=== PATIENT | female | born 1940 | race Caucasian/White ===

== ENCOUNTER → 2017-08-04 15:47 | Outpatient (REF) | payer MEDICARE, OTHER, SELFPAY ==
[2017-08-04 16:50] LABS: Basophils # 0.1 K/mm3 (0-0.2); Basophils % 0.7 % (0.1-2.0); Eosinophils # 0.1 K/mm3 (0.0-0.4); Eosinophils % 1.7 % (0.1-12.0); Hematocrit 28.4 % (37.0-47.0); Hemoglobin 9.2 g/dL (12.2-16.2); Lymphocytes # 1.1 K/mm3 (0.7-4.5); Lymphocytes % 13.6 K/mm3 (10-50); Mean Corpuscular HGB Conc 32.3 g/dL (31.8-35.4); Mean Corpuscular Hemoglobin 28.7 pg (27.0-31.2); Mean Corpuscular Volume 88.7 fl (81-99); Mean Platelet Volume 8.5 fl (7.4-10.4); Monocytes # 0.4 K/mm3 (0.1-1.0); Monocytes % 5.1 % (1.7-9.3); Neutrophils # 6.4 K/mm3 (1.8-7.8); Platelet Count 373 K/mm3 (142-424); Red Cell Distribution Width 15.1 % (11.5-17.5); White Blood Count 8.1 K/mm3 (4.8-10.8)
[2017-08-04 17:49] LABS: Anion Gap 14.1 mEq/L (5-15); Blood Urea Nitrogen 51 mg/dL (7-18); Carbon Dioxide 30 mmol/L (21.0-32.0); Chloride 87 mmol/L (98-107); Creatinine,Serum 1.91 mg/dL (0.55-1.02); Estimated Glomerular Filt Rate 25 ml/min (>60); GFR (African American) 31 ML/MIN (>60); Glucose 126 mg/dL (74-106); Potassium 4.1 mmoL/L (3.5-5.1); Sodium 127 mmol/L (136-145)
== END ==
LOC: LAB 15:47
PROVIDERS: Visit Provider Family Medicine
DX: R09.02 Hypoxemia (principal)
CPT/HCPCS: 80048; 83735; 84100; 85025

== ENCOUNTER 2017-08-05 12:06 | Observation (INO) | payer MEDICARE, OTHER, SELFPAY ==
--- NOTE | 2017-08-05 | CA_ITS ---
PROCEDURE: 2-D M-mode and color Doppler study INDICATIONS FOR THE TEST: Chest pain+ COPD Heart Murmur Tobacco Smoking Palpitations Fatigue+ Syncope Edema+ Hypertension+Diabetes Mellitus+ Rheumatic Fever SOB+ORTIZ Obesity Hyperlipidemia+ Family History HD Additional History hx of CT, CABG, Afib, weakness, CHF, elevated troponins PATIENT INFORMATION HEIGHT:57 WEIGHT: 136 GENDER: Female B/P: 131/60 2-D/M-MODE INTERPRETATION: 2-D MEASUREMENTS OBSERVED VALUES IN CMS Right Ventricular Dimension (RVDd) 1.8 Interventricular Septum (Thickness)(IVsd) 0.9 Left Ventricular Internal Dimensions(LVIDd) 5.8 Left Ventricular Posterior Wall (Thickness)(LVPWd) 0.9 Aortic Root 2.5 Aortic Cusp Separation 1.7 Left Atrial Dimensions (LAD) 4.6 2D 1. Technically difficult study because of the patient's factor and poor acoustic windows 2. The left atrium is moderately enlarged, left ventricle is moderately dilated, there is severely reduced left ventricular systolic function, visually estimated ejection fraction approximately 20-25%, there is marked hypo to akinesis involving mid to distal septum, anterior anteroapical, apical and anterolateral wall. 3. The right atrium and right ventricle are mildly enlarged, contractility of the right ventricle is normal. 4. The aortic valve is thickened and calcified with restriction the leaflet mobility. 5. The mitral valve has mitral annular calcification which extends and both anterior and posterior mitral leaflet. 6. The tricuspid valve leaflets are minimally thickened. 7. The pulmonic valve is poorly visualized. 8. There is trivial pericardial and large left-sided pleural effusion seen. DOPPLER INTERROGATION: 1. The aortic out flow velocity is reduced, suggestive of low cardiac output state, degree of aortic stenosis cannot be ascertain from this study, there is mild aortic insufficiency present. 2. The mitral inflow velocity is suggestive of mitral stenosis, there is mild mitral regurgitation. 3. There is mild tricuspid regurgitation seen, tricuspid and jet velocity insufficient for calculation of the right ventricular systolic pressure, tissue Doppler is suggestive of raised left atrial pressure. CONCLUSION: 1. Moderately enlarged left atrium, moderately dilated left ventricle, severely reduced left ventricular systolic function, visually estimated ejection fraction of 20-25%, with segmental wall motion abnormality described above, Doppler evidence of low cardiac output state. 2. Thickened and calcified aortic valve, the degree of aortic stenosis cannot be
--- NOTE | 2017-08-05 12:14 | XR_ITS ---
XR chest 2V COMPARISON: PA and lateral chest 03/21/2017 HISTORY: Hypoxia TECHNIQUE: PA and lateral chest FINDINGS: There is moderate generalized cardio megaly with sternal wire sutures and surgical clips from previous bypass procedure. There are small to moderate sized bilateral pleural effusions. There is a small amount of fluid in the major fissure. There is no significant pulmonary congestion noted. IMPRESSION: Cardio megaly and bilateral pleural effusions likely due to chronic somewhat compensated congestive heart failure
[2017-08-05 12:29] VITALS: BP 131/60; PULSE 72; RESP 18; TEMP 36.6; O2SAT 95; BMI 29.5
[2017-08-05 13:06] LABS: Basophils # 0.1 K/mm3 (0-0.2); Basophils % 0.8 % (0.1-2.0); Eosinophils # 0.1 K/mm3 (0.0-0.4); Hematocrit 28.3 % (37.0-47.0); Lymphocytes # 0.9 K/mm3 (0.7-4.5); Lymphocytes % 10.3 K/mm3 (10-50); Mean Corpuscular HGB Conc 31.9 g/dL (31.8-35.4); Mean Corpuscular Hemoglobin 28.2 pg (27.0-31.2); Mean Corpuscular Volume 88.6 fl (81-99); Mean Platelet Volume 8.2 fl (7.4-10.4); Monocytes # 0.5 K/mm3 (0.1-1.0); Monocytes % 5.8 % (1.7-9.3); Neutrophils # 7.5 K/mm3 (1.8-7.8); Neutrophils % 82.2 % (37.0-80.0); Platelet Count 446 K/mm3 (142-424); Red Blood Count 3.19 M/mm3 (4.20-5.40); Red Cell Distribution Width 15.2 % (11.5-17.5); White Blood Count 9.1 K/mm3 (4.8-10.8)
[2017-08-05 13:37] LABS: ABG Base Excess 1.1 mmol/L (-2.4-2.3); ABG HCO3 24.5 mmhg (22.0-26.0); ABG Oxygen Saturation 97 % (90-100); ABG PCO2 33.1 mmhg (35.0-45.0); ABG PH 7.49 mmol/L (7.35-7.45); ABG TCO2 25.5 mmhg (23-27)
[2017-08-05 13:38] LABS: Allen's Test ACCEPTABLE; Oxygen 3LPM %; Source R RADIAL
--- NOTE | 2017-08-05 13:39 | HMH.HP ---
*Admission Date: 08/05/17 <Korina Zamorano 08/05/17 13:57> *Chief complaint: Weakness, SOA <Korina Zamorano 08/05/17 13:57> *History of present illness: Ms Ba is a 77 female with a hx of heart disease, [place] s/p CABG, afib, HLP, and DM who presented to the office of A today with the complaint of weakness and SOA for 1 week. She had also been having nose bleeds. She is usually on oxygen at 3L/min and her sats are normally in the 90's. Today in the office, her oxygen was 85% on 3L. Rales were heard in her lung bases and it was felt she may have a pneumonia. Of note, she was admitted at [place] in May d/t pneumonia. She was directly admitted from the office for further evaluation and treatment. <Korina Zamorano 08/05/17 13:57> [facility] History Medical History: Reports:: Anxiety, Atrial Fibrillation, Congestive Heart Failure, Coronary Artery Disease, Diabetes Mellitus Type 2, Home Oxygen, Hyperlipidemia, Hypertension, Myocardial Infarction, Renal Insufficiency Denies:: Cancer, Diabetes Mellitus Type 1, MRSA <Korina Zamorano 08/05/17 13:57> Other Medical History: Reports: Anemia <Korina Zamorano 08/05/17 13:57> Laterality Cases: Bilateral: Tonsillectomy <Korina Zamorano 08/05/17 13:57> Other Surgeries: Yes: Appendectomy, Cardiac Catheterization, Cardiac Surgery, Coronary Stent, Hernia Repair, Hysterectomy-Total, Open Heart Surgery <Korina Zamorano 08/05/17 13:57> Amputation: No <Korina Zamorano 08/05/17 13:57> Fractures: No <Korina Zamorano 08/05/17 13:57> Comment: Back surgery <Korina Zamorano 08/05/17 13:57> - *Social History Educational Level: Completed High School <Korina Zamorano 08/05/17 13:57> Smoking Status: Never smoker <Korina Zamoraon 08/05/17 13:57> Alcohol Intake: never <Korina Zamorano 08/05/17 13:57> Occupational Status: retired <Korina Zamorano - 08/05/17 13:57> Housing: house <Korina Zamorano 08/05/17 13:57> Household Members: spouse <Korina Zamorano 08/05/17 13:57> - Psychiatric History Expresses thoughts of harming self/others: None <Korina Zamorano 08/05/17 13:57> Suicide Plan Description: No Plan <Korina Zamorano 08/05/17 13:57> *Family Hx:: Diabetes, Heart Attack, Hyperlipidemia, Hypertension <UbaldodevonteKorina 08/05/17 13:57> Review of Systems - Constitutional Reports fatigue, Reports malaise, Reports weakness, Denies body ache(s) <UbaldodevonteKorina 08/05/17 13:57> - Eyes Denies blurry vision, Denies double vision <bUaldodevonteKorina 08/05/17 13:57> - ENT Reports nasal congestion, Denies sore throat <UbaldodevonteKorina 08/05/17 13:57> - *Cardiovascular Reports chest pain (a few days ago but none today) <UbaldodevonteKorina 08/05/17 13:57> - *Respiratory Reports shortness of breath, Denies cough <UbaldodevonteKorina - 08/05/17 13:57> - *Gastrointestinal Reports nausea, Denies abdominal pain, Denies vomiting <UbaldodevonteKorina 08/05/17 13:57> - *Genitourinary Denies difficulty urinating, Denies painful urination <UbaldodevonteKorina 08/05/17 13:57> - *Musculoskeletal Denies joint pain, Denies body aches <UbaldodevonteKorina - 08/05/17 13:57> - *Neurologic Reports weakness, Denies headache(s) <UbaldodevonteKorina - 08/05/17 13:57> Meds Home Medications Medication Instructions Recorded Confirmed Type Apixaban [Eliquis] 2.5 mg PO BID 08/05/17 08/05/17 History Clopidogrel Bisulfate [Plavix 75mg 75 mg PO DAILY 08/05/17 08/05/17 History Tab] Colesevelam HCl [Welchol] 625 mg PO DAILY 08/05/17 08/05/17 History Cranberry Fruit Extract [Cranberry] 250 mg PO DAILY 08/05/17 08/05/17 History LORazepam [Ativan] 1 mg PO TIDP PRN 08/05/17 08/05/17 History RX: Amlodipine Besylate [Norvasc 10 mg PO DAILY 08/05/17 08/05/17 History 10mg tablet] RX: Bumetanide [Bumex 1mg tablet] 1 mg PO BID 08/05/17 08/05/17 History RX: Isosorbide Dinitrate 30 mg PO BID 08/05/17 08/05/17 History RX: Lansoprazole 30 mg PO DAILY 08/05/17 08/05/17 History RX: Metoprolol Succinate 50 mg PO DAILY 08/05/1708/05
--- NOTE | 2017-08-05 13:43 | P.HP_ITS ---
*Admission Date: 08/05/17 <Korina Zamorano 08/05/17 13:57> *Chief complaint: Weakness, SOA <Korina Zamorano 08/05/17 13:57> *History of present illness: Ms Ba is a 77 female with a hx of heart disease, [place] s/p CABG, afib, HLP , and DM who presented to the office of A today with the complaint of weakness and SOA for 1 week. She had also been having nose bleeds. She is usually on oxygen at 3L/min and her sats are normally in the 90's. Today in the office, her oxygen was 85% on 3L. Rales were heard in her lung bases and it was felt she may have a pneumonia. Of note, she was admitted at [place] in May d/t pneumonia. She was directly admitted from the office for further evaluation and treatment. <Korina Zamorano 08/05/17 13:57> [facility] History Medical History: Reports:: Anxiety, Atrial Fibrillation, Congestive Heart Failure, Coronary Artery Disease, Diabetes Mellitus Type 2, Home Oxygen, Hyperlipidemia, Hypertension, Myocardial Infarction, Renal Insufficiency Denies:: Cancer, Diabetes Mellitus Type 1, MRSA <Korina Zamorano 08/05/17 13:57> Other Medical History: Reports: Anemia <Korina Zamorano 08/05/17 13:57> Laterality Cases: Bilateral: Tonsillectomy <Korina Zamorano 08/05/17 13:57> Other Surgeries: Yes: Appendectomy, Cardiac Catheterization, Cardiac Surgery, Coronary Stent, Hernia Repair, Hysterectomy-Total, Open Heart Surgery <Korina Zamorano 08/05/17 13:57> Amputation: No <Korina Zamorano 08/05/17 13:57> Fractures: No <Korina Zamorano 08/05/17 13:57> Comment: Back surgery <Korina Zamorano 08/05/17 13:57> - *Social History Educational Level: Completed High School <Korina Zamorano 08/05/17 13:57> Smoking Status: Never smoker <Korina Zamorano 08/05/17 13:57> Alcohol Intake: never <Korina Zamorano 08/05/17 13:57> Occupational Status: retired <Korina Zamorano - 08/05/17 13:57> Housing: house <Korina Zamorano 08/05/17 13:57> Household Members: spouse <Korina Zamorano 08/05/17 13:57> - Psychiatric History Expresses thoughts of harming self/others: None <Korina Zamorano 08/05/17 13: 57> Suicide Plan Description: No Plan <Korina Zamorano 08/05/17 13:57> *Family Hx:: Diabetes, Heart Attack, Hyperlipidemia, Hypertension <Ubaldodevonte Korina 08/05/17 13:57> Review of Systems - Constitutional Reports fatigue, Reports malaise, Reports weakness, Denies body ache(s) < UbaldodevnoteKorina 08/05/17 13:57> - Eyes Denies blurry vision, Denies double vision <UbaldodevonteKorina 08/05/17 13:57> - ENT Reports nasal congestion, Denies sore throat <UbaldodevonteKorina 08/05/17 13:57> - *Cardiovascular Reports chest pain (a few days ago but none today) <UbaldodevonteKorina 08/05/17 13:57> - *Respiratory Reports shortness of breath, Denies cough <UbaldodevonteKorina - 08/05/17 13:57> - *Gastrointestinal Reports nausea, Denies abdominal pain, Denies vomiting <UbaldodevonteKorina 13:57> - *Genitourinary Denies difficulty urinating, Denies painful urination <UbaldodevonteKorina 13:57> - *Musculoskeletal Denies joint pain, Denies body aches <UbaldodevonteKorina - 08/05/17 13:57> - *Neurologic Reports weakness, Denies headache(s) <UbaldodevonteKorina - 08/05/17 13:57> Meds Home Medications Medication Instructions Recorded Confirmed Type Apixaban [Eliquis] 2.5 mg PO BID 08/05/17 08/05/17 History Clopidogrel Bisulfate [Plavix 75mg 75 mg PO DAILY 08/05/17 08/05/17 History Tab] Colesevelam HCl [Welchol] 625 mg PO DAILY 08/05/17 08/05/17 History Cranberry Fruit Extract [Cranberry] 250 mg PO DAILY 08/05/17 08/05/17 History LORazepam [A
[2017-08-05 13:57] LABS: CKMB Relative Index 4.2 U/L (0-4.0); Creatine Kinase 65 U/L (26-192); Creatine Kinase MB 2.7 mg/ml (0.0-3.6); Troponin I 0.34 ng/ml (0.00-0.06)
--- NOTE | 2017-08-05 15:38 | HMH.CNCARD ---
History of Present Illness Consult date: 08/05/17 Requesting physician: Nikhil Brown Chief complaint: weakness Additional Medical History:: 1. Coronary artery disease A. History of 3 vessel coronary bypass approximately 2002 B. Redo coronary artery bypass grafting in 2005 C. History of occluded SHORE to LAD. D. Patient has ischemic cardiomyopathy with ejection fraction of approximately 35% by echocardiogram either late 2017 or early 2018. 2. Diabetes mellitus 3. Hypertension 4. Hyperlipidemia 5. Atrial fibrillation for which she is on Eliquis therapy 6. Chronic oxygen use with no history of tobacco use. 7. Chronic kidney disease stage III with creatinine at baseline around 1.5-1.6 History of present illness: Ms Ba is a 77 female with a hx of heart disease, [place] s/p CABG, afib, HLP, and DM who presented to the office of [facility] today with the complaint of weakness and SOA for 1 week. She had also been having nose bleeds. She is usually on oxygen at 3L/min and her sats are normally in the 90's. Today in the office, her oxygen was 85% on 3L. Rales were heard in her lung bases and it was felt she may have a pneumonia. Of note, she was admitted at [place] in May d/t pneumonia. She was directly admitted from the office for further evaluation and treatment. The above per Korina Zamorano PA-C for Dr. Brown The patient relates that due to the nosebleeds she has cut back her Eliquis to just 1 tablet daily. She denies any chest pain except when she lies down she has a chest discomfort to the right upper sternum. When she sits up it resolves. Cardiology asked to see the patient due to elevated troponin. [facility] History Medical History: Reports:: Anxiety, Atrial Fibrillation, Congestive Heart Failure, Coronary Artery Disease, Diabetes Mellitus Type 2, Home Oxygen, Hyperlipidemia, Hypertension, Myocardial Infarction, Renal Insufficiency Denies:: Cancer, Diabetes Mellitus Type 1, MRSA Other Medical History: Reports: Anemia Laterality Cases: Bilateral: Tonsillectomy Other Surgeries: Yes: Appendectomy, Cardiac Catheterization, Cardiac Surgery, Coronary Stent, Hernia Repair, Hysterectomy-Total, Open Heart Surgery Amputation: No Fractures: No - *Social History Educational Level: Completed High School Smoking Status: Never smoker Alcohol Intake: never Occupational Status: retired Housing: house Household Members: spouse - Psychiatric History Expresses thoughts of harming self/others: None Suicide Plan Description: No Plan Pschychiatric History:: Reports:: Anxiety *Family Hx:: Diabetes, Heart Attack, Hyperlipidemia, Hypertension Meds Home Medications Medication Instructions Recorded Confirmed Type Amlodipine Besylate [Norvasc 10mg 10 mg PO DAILY 08/05/17 08/05/17 History tablet] Apixaban [Eliquis] 2.5 mg PO BID 08/05/17 08/05/17 History Bumetanide [Bumex 1mg tablet] 1 mg PO BID 08/05/17 08/05/17 History Clopidogrel Bisulfate [Plavix 75mg 75 mg PO DAILY 08/05/17 08/05/17 History Tab] Colesevelam HCl [Welchol] 625 mg PO DAILY 08/05/17 08/05/17 History Cranberry Fruit Extract [Cranberry] 250 mg PO DAILY 08/05/17 08/05/17 History Isosorbide Dinitrate 30 mg PO BID 08/05/17 08/05/17 History LORazepam [Ativan] 1 mg PO TIDP PRN 08/05/17 08/05/17 History Lansoprazole 30 mg PO DAILY 08/05/17 08/05/17 History Metoprolol Succinate 50 mg PO DAILY 08/05/17 08/05/17 History Ubidecarenone [Coq-10] 100 mg PO DAILY 08/05/17 08/05/17 History Venlafaxine HCl [Venlafaxine HCl 225 mg PO DAILY 08/05/17 08/05/17 History ER] glipiZIDE [Glipizide ER] 2.5 mg PO DAILY 08/05/17 08/05/17 History Allergies Allergy/AdvReac Type Severity Reaction Status Date / Time No Known Allergies Allergy Verified 08/05/17 13:42 Review of Systems - *Cardiovascular Reports chest pain, Reports shortness of breath - *Respiratory Reports shortness of breath with activity - *Gastrointestinal Denies abdominal pain, Denies ryley ruggiero
--- NOTE | 2017-08-05 15:41 | P.CONS_ITS ---
History of Present Illness Consult date: 08/05/17 Requesting physician: Nikhil Brown Chief complaint: weakness Additional Medical History:: 1. Coronary artery disease A. History of 3 vessel coronary bypass approximately 2002 B. Redo coronary artery bypass grafting in 2005 C. History of occluded SHORE to LAD. D. Patient has ischemic cardiomyopathy with ejection fraction of approximately 35% by echocardiogram either late 2017 or early 2018. 2. Diabetes mellitus 3. Hypertension 4. Hyperlipidemia 5. Atrial fibrillation for which she is on Eliquis therapy 6. Chronic oxygen use with no history of tobacco use. 7. Chronic kidney disease stage III with creatinine at baseline around 1.5-1.6 History of present illness: Ms Ba is a 77 female with a hx of heart disease, [place] s/p CABG, afib, HLP , and DM who presented to the office of [facility] today with the complaint of weakness and SOA for 1 week. She had also been having nose bleeds. She is usually on oxygen at 3L/min and her sats are normally in the 90's. Today in the office, her oxygen was 85% on 3L. Rales were heard in her lung bases and it was felt she may have a pneumonia. Of note, she was admitted at [place] in May d/t pneumonia. She was directly admitted from the office for further evaluation and treatment. The above per Korina Zamorano PA-C for Dr. Brown The patient relates that due to the nosebleeds she has cut back her Eliquis to just 1 tablet daily. She denies any chest pain except when she lies down she has a chest discomfort to the right upper sternum. When she sits up it resolves. Cardiology asked to see the patient due to elevated troponin. [facility] History Medical History: Reports:: Anxiety, Atrial Fibrillation, Congestive Heart Failure, Coronary Artery Disease, Diabetes Mellitus Type 2, Home Oxygen, Hyperlipidemia, Hypertension, Myocardial Infarction, Renal Insufficiency Denies:: Cancer, Diabetes Mellitus Type 1, MRSA Other Medical History: Reports: Anemia Laterality Cases: Bilateral: Tonsillectomy Other Surgeries: Yes: Appendectomy, Cardiac Catheterization, Cardiac Surgery, Coronary Stent, Hernia Repair, Hysterectomy-Total, Open Heart Surgery Amputation: No Fractures: No - *Social History Educational Level: Completed High School Smoking Status: Never smoker Alcohol Intake: never Occupational Status: retired Housing: house Household Members: spouse - Psychiatric History Expresses thoughts of harming self/others: None Suicide Plan Description: No Plan Pschychiatric History:: Reports:: Anxiety *Family Hx:: Diabetes, Heart Attack, Hyperlipidemia, Hypertension Meds Home Medications Medication Instructions Recorded Confirmed Type Amlodipine Besylate [Norvasc 10mg 10 mg PO DAILY 08/05/17 08/05/17 History tablet] Apixaban [Eliquis] 2.5 mg PO BID 08/05/17 08/05/17 History Bumetanide [Bumex 1mg tablet] 1 mg PO BID 08/05/17 08/05/17 History Clopidogrel Bisulfate [Plavix 75mg 75 mg PO DAILY 08/05/17 08/05/17 History Tab] Colesevelam HCl [Welchol] 625 mg PO DAILY 08/05/17 08/05/17 History Cranberry Fruit Extract [Cranberry] 250 mg PO DAILY 08/05/17 08/05/17 History Isosorbide Dinitrate 30 mg PO BID 08/05/17 08/05/17 History LORazepam [Ativan] 1 mg PO TIDP PRN 08/05/17 08/05/17 History Lansoprazole 30 mg PO DAILY 08/05/17 08/05/17 History Metoprolol Succinate 50 mg PO DAILY 08/05/17 08/05/17 History Ubidecarenone [Coq-10] 100 mg PO DAILY 08/05/17 08/05/17 History Venlafaxine HCl [Venlafaxine HCl 225 mg PO DAILY 08/05/17 08/05/17 Histor
[2017-08-05 15:57] VITALS: BP 111/51; PULSE 73; RESP 18; TEMP 36.5; O2SAT 98
[2017-08-05 16:00] VITALS: PULSE 68
--- NOTE | 2017-08-05 16:51 | PC.NURSE ---
Patient unable to produce sputum culture at this time related to no productive cough at this time.
[2017-08-05 16:55] LABS: POC Glucose,Bedside 233 mg/dL (70-110)
[2017-08-05 17:49] LABS: Mycoplasma Pneumo IGM (Rapid) Non-Reactive (Non-Reactiv)
--- NOTE | 2017-08-05 19:15 | PC.NURSE ---
PT FULL CODE, REPORT FROM [email or web address]
--- NOTE | 2017-08-05 19:33 | PC.NURSE ---
report given to patricio
[2017-08-05 20:00] VITALS: BP 144/66; PULSE 80; PULSE 81; RESP 18; TEMP 36.4; O2SAT 94
[2017-08-05 20:36] VITALS: O2SAT 95
[2017-08-05 20:45] VITALS: O2SAT 95
[2017-08-05 21:09] LABS: Blood Urea Nitrogen 52 mg/dL (7-18); Carbon Dioxide 28 mmol/L (21.0-32.0); Chloride 87 mmol/L (98-107); Creatinine Clearance Estimated 23 mL/min (0-300); Estimated Glomerular Filt Rate 24 ml/min (>60); GFR (African American) 29 ML/MIN (>60); Glucose 133 mg/dL (74-106); Sodium 127 mmol/L (136-145)
[2017-08-05 23:39] LABS: POC Glucose,Bedside 148 mg/dL (70-110)
[2017-08-06] VITALS (7 sets, daily range): BP systolic 126–148; BP diastolic 58–81; PULSE 79–90; RESP 18–20; TEMP 36.1–36.6; O2SAT 92–98
[2017-08-06 06:59] LABS: POC Glucose,Bedside 172 mg/dL (70-110)
--- NOTE | 2017-08-06 07:32 | PC.NURSE ---
REPORT GIVEN TO Mike NORTON W/C
--- NOTE | 2017-08-06 07:43 | PC.NURSE ---
PT SLEPT INTERVALS THIS SHIFT. RECEIVED 2 UNITS PRBC. TOLERATED WELL, NO REACTION NOTED. CONTINUES ON NS AND PROTONIX DRIP. FINGERSTICKS ELEVATED, INSULIN PER SLIDING SCALE GIVEN. NO C/O PAIN OR DISCOMFORT REPORTED. AM CBC. BREATH SOUNDS EQUAL, CLEAR. PT STABLE. WILL CONTINUE TO MONITOR. REPORT TO ONCOMING NURSE.
--- NOTE | 2017-08-06 07:47 | PC.NURSE ---
PT SLEPT SHORT INTERVALS THIS SHIFT. C/O BACK PAIN, OBTAINED ORDER FOR TYLENOL. BREATHS SOUNDS EQUAL AND CLEAR. NO COUGH NOTED. SPUTUM SPECIMEN STILL NEEDED. CONTINUES ON IV ABX. PT STABLE. WILL CONTINUE TO MONITOR. REPORT TO ONCOMING NURSE.
--- NOTE | 2017-08-06 08:21 | HMH.ACPN2 ---
<Korina Zamorano - Last Filed: 08/06/17 08:21> Internal Medicine - PN: Subj *Date: 08/06/17 *Time: 08:21 Interval history: Patient states she feels horrible this morning. She says she hurts along her entire spine. She has been unable to get comfortable the entire night. She has tried sitting and laying down with no success. Her nose has been bleeding. She is still short of breath but it is slightly improved. She wants to go home. Exam Vital signs and Labs for Last 24 Hours: Temp Pulse Resp BP Pulse Ox 97.9 F 80 18 126/62 98 08/06/17 08:00 08/06/17 08:00 08/06/17 08:00 08/06/17 08:00 08/06/17 08:00 Laboratory Results - last 24 hr 08/05/17 12:45: Total Creatine Kinase 65, CK-MB (CK-2) 2.7, CK-MB (CK-2) Rel Index 4.2 H, Troponin I 0.34 H 08/05/17 12:45: WBC 9.1, RBC 3.19 L, Hgb 9.0 L, Hct 28.3 L, MCV 88.6, MCH 28.2, MCHC 31.9, RDW 15.2, Plt Count 446 H, MPV 8.2, Neut % (Auto) 82.2 H, Lymph % (Auto) 10.3, Grady % (Auto) 5.8, Eos % (Auto) 1.0, Baso % (Auto) 0.8, Neut # (Auto) 7.5, Lymph # (Auto) 0.9, Grady # (Auto) 0.5, Eos # (Auto) 0.1, Baso # (Auto) 0.1 08/05/17 12:45: Sodium 127 L, Potassium 4.0, Chloride 87 L, Carbon Dioxide 28, Anion Gap 16.0 H, BUN 52 H, Creatinine 2.00 H, Estimated Creat Clear 23, Estimated GFR 24 L, Est GFR ( Amer) 29 L, Glucose 133 H 08/05/17 13:36: Specimen Source R radial, O2 % 3lpm, ABG pH 7.49 H, ABG pCO2 33.1 L, ABG pO2 92.0, ABG HCO3 24.5, ABG Total CO2 25.5, ABG O2 Saturation 97, ABG Base Excess 1.1, Luis Test Acceptable 08/05/17 14:03: Mycoplasma pneumon IgM Non-reactive 08/05/17 16:22: POC Glucose 233 08/05/17 22:33: POC Glucose 148 08/06/17 06:50: POC Glucose 172 I & O for Last 24 hours: Intake & Output 08/03/17 08/04/17 08/05/17 08/06/17 11:59 11:59 11:59 11:59 Intake Total 720 / 720 Output Total 550 / 550 Balance 170 / 170 Weight 135 lb 4 oz - Constitutional no acute distress - *Routine Respiratory Exam Present: rales (improved but still faint in the bases) - *Routine Cardiovascular Exam Present: RRR - *Routine Abdominal Exam Present: soft, normoactive bowel sounds. Absent: tenderness - *Routine Extremities Exam Present: edema Assessment and Plan (1) Elevated troponin I level Current visit: Yes Status: Acute Category: Medical Code(s): R74.8 - Abnormal levels of other serum enzymes (2) Chronic ischemic heart disease Current visit: Yes Status: Chronic Category: Medical Code(s): I25.9 - Chronic ischemic heart disease, unspecified (3) Acute on chronic combined systolic (congestive) and diastolic (congestive) heart failure Current visit: Yes Status: Acute Category: Medical Code(s): I50.43 - Acute on chronic combined systolic (congestive) and diastolic (congestive) heart failure (4) Hypoxia Current visit: Yes Status: Acute Category: Medical Code(s): R09.02 - Hypoxemia (5) Anemia Current visit: Yes Status: Acute Category: Medical Code(s): D64.9 - Anemia, unspecified (6) Hyponatremia Current visit: Yes Status: Acute Category: Medical Code(s): E87.1 - Hypo-osmolality and hyponatremia (7) Chest pain Current visit: Yes Status: Acute Category: Medical Code(s): R07.9 - Chest pain, unspecified (8) Weakness Current visit: Yes Status: Acute Category: Medical Code(s): R53.1 - Weakness (9) Chronic renal insufficiency, stage IV (severe) Current visit: Yes Status: Chronic Category: Medical Code(s): N18.4 - Chronic kidney disease, stage 4 (severe) (10) Type 2 diabetes mellitus Current visit: Yes Status: Chronic Category: Medical Code(s): E11.9 - Type 2 diabetes mellitus without complications - Assessment and plan all Dx Assessment and Plan for all problems:: Cardiology did see the patient. They felt with an elevated troponin in the setting of known coronary artery disease and ischemic cardiomyopathy with chest x-ray evidence of congestive heart failure
--- NOTE | 2017-08-06 08:26 | P.PN_ITS ---
<Korina Zamorano - Last Filed: 08/06/17 08:21> Internal Medicine - PN: Subj *Date: 08/06/17 *Time: 08:21 Interval history: Patient states she feels horrible this morning. She says she hurts along her entire spine. She has been unable to get comfortable the entire night. She has tried sitting and laying down with no success. Her nose has been bleeding. She is still short of breath but it is slightly improved. She wants to go home. Exam Vital signs and Labs for Last 24 Hours: Temp Pulse Resp BP Pulse Ox 97.9 F 80 18 126/62 98 08/06/17 08:00 08/06/17 08:00 08/06/17 08:00 08/06/17 08:00 08/06/17 08:00 Laboratory Results - last 24 hr 08/05/17 12:45: Total Creatine Kinase 65, CK-MB (CK-2) 2.7, CK-MB (CK-2) Rel Index 4.2 H, Troponin I 0.34 H 08/05/17 12:45: WBC 9.1, RBC 3.19 L, Hgb 9.0 L, Hct 28.3 L, MCV 88.6, MCH 28.2, MCHC 31.9, RDW 15.2, Plt Count 446 H, MPV 8.2, Neut % (Auto) 82.2 H, Lymph % ( Auto) 10.3, Dillon % (Auto) 5.8, Eos % (Auto) 1.0, Baso % (Auto) 0.8, Neut # (Auto ) 7.5, Lymph # (Auto) 0.9, Dillon # (Auto) 0.5, Eos # (Auto) 0.1, Baso # (Auto) 0.1 08/05/17 12:45: Sodium 127 L, Potassium 4.0, Chloride 87 L, Carbon Dioxide 28, Anion Gap 16.0 H, BUN 52 H, Creatinine 2.00 H, Estimated Creat Clear 23, Estimated GFR 24 L, Est GFR ( Amer) 29 L, Glucose 133 H 08/05/17 13:36: Specimen Source R radial, O2 % 3lpm, ABG pH 7.49 H, ABG pCO2 33.1 L, ABG pO2 92.0, ABG HCO3 24.5, ABG Total CO2 25.5, ABG O2 Saturation 97, ABG Base Excess 1.1, Luis Test Acceptable 08/05/17 14:03: Mycoplasma pneumon IgM Non-reactive 08/05/17 16:22: POC Glucose 233 08/05/17 22:33: POC Glucose 148 08/06/17 06:50: POC Glucose 172 I & O for Last 24 hours: Intake & Output 08/03/17 08/04/17 08/05/17 08/06/17 11:59 11:59 11:59 11:59 Intake Total 720 / 720 Output Total 550 / 550 Balance 170 / 170 Weight 135 lb 4 oz - Constitutional no acute distress - *Routine Respiratory Exam Present: rales (improved but still faint in the bases) - *Routine Cardiovascular Exam Present: RRR - *Routine Abdominal Exam Present: soft, normoactive bowel sounds. Absent: tenderness - *Routine Extremities Exam Present: edema Assessment and Plan (1) Elevated troponin I level Current visit: Yes Status: Acute Category: Medical Code(s): R74.8 - Abnormal levels of other serum enzymes (2) Chronic ischemic heart disease Current visit: Yes Status: Chronic Category: Medical Code(s): I25.9 - Chronic ischemic heart disease, unspecified (3) Acute on chronic combined systolic (congestive) and diastolic (congestive) heart failure Current visit: Yes Status: Acute Category: Medical Code(s): I50.43 - Acute on chronic combined systolic (congestive) and diastolic (congestive) heart failure (4) Hypoxia Current visit: Yes Status: Acute Category: Medical Code(s): R09.02 - Hypoxemia (5) Anemia Current visit: Yes Status: Acute Category: Medical Code(s): D64.9 - Anemia , unspecified (6) Hyponatremia Current visit: Yes Status: Acute Category: Medical Code(s): E87.1 - Hypo- osmolality and hyponatremia (7) Chest pain Current visit: Yes Status: Acute Category: Medical Code(s): R07.9 - Chest pain, unspecified (8) Weakness Current visit: Yes Status: Acute Category: Medical Code(s): R53.1 - Weakness (9) Chronic renal insufficiency, stage IV (severe) Current visit: Yes Status: Chronic
[2017-08-06 08:41] LABS: Basophils # 0.1 K/mm3 (0-0.2); Basophils % 0.5 % (0.1-2.0); Eosinophils # 0.1 K/mm3 (0.0-0.4); Eosinophils % 0.8 % (0.1-12.0); Hematocrit 29.1 % (37.0-47.0); Hemoglobin 9.4 g/dL (12.2-16.2); Lymphocytes # 1.2 K/mm3 (0.7-4.5); Lymphocytes % 11.5 K/mm3 (10-50); Mean Corpuscular HGB Conc 32.2 g/dL (31.8-35.4); Mean Corpuscular Hemoglobin 28.6 pg (27.0-31.2); Monocytes # 0.5 K/mm3 (0.1-1.0); Monocytes % 4.8 % (1.7-9.3); Neutrophils # 8.4 K/mm3 (1.8-7.8); Neutrophils % 82.4 % (37.0-80.0); Platelet Count 420 K/mm3 (142-424); Red Blood Count 3.27 M/mm3 (4.20-5.40); Red Cell Distribution Width 15.3 % (11.5-17.5); White Blood Count 10.2 K/mm3 (4.8-10.8)
[2017-08-06 09:07] LABS: Blood Urea Nitrogen 54 mg/dL (7-18); CKMB Relative Index 10.5 U/L (0-4.0); Carbon Dioxide 28 mmol/L (21.0-32.0); Chloride 88 mmol/L (98-107); Creatine Kinase 167 U/L (26-192); Creatinine Clearance Estimated 20 mL/min (0-300); Creatinine,Serum 2.27 mg/dL (0.55-1.02); Estimated Glomerular Filt Rate 21 ml/min (>60); GFR (African American) 25 ML/MIN (>60); Glucose 168 mg/dL (74-106); Sodium 128 mmol/L (136-145)
[2017-08-06 09:09] LABS: Creatine Kinase MB 17.6 mg/ml (0.0-3.6); Troponin I 3.65 ng/ml (0.00-0.06)
[2017-08-06 11:24] LABS: POC Glucose,Bedside 200 mg/dL (70-110)
--- NOTE | 2017-08-06 11:51 | PC.NURSE ---
Addendum entered by Corrie Hutton RN 08/06/17 12:19: THIS NURSE OBTAINED ALL HOME MEDICATIONS FROM PATIENT AND LOCKED IN IV ESTIMATOR AND DRAFTER PT'S ROOM. 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 PT REPORTS THAT SHE HAS TAKEN CLOPIDOGREL 75MG, LANSOPRAZOLE DR 30MG, ELIQUIS 2.5MG, BUMETANIDE 1MG, ISOSRBIDE DN 30MG, WELCHOL 625MG, CoQ10 200MG. CALL PLACED TO DR MENDOZA, WIDE AREA NETWORK ENGINEER FOR DR EDWARDS.
--- NOTE | 2017-08-06 12:09 | PC.NURSE ---
LATE ENTRY FOR 08/06/17 @ 1000 - PT REQUESTING HER TO GET HER HOME MEDS SHE HAS NOT TAKEN HER MORNING MEDICATIONS. PT INFORMED TO NOT TAKE ANY MEDICATIONS THAT SHE HAS BROUGHT FROM HOME. PT REPORTS THAT SHE WAS TOLD TO BRING HER MEDS WITH HER TO THE HOSPITAL. THIS NURSE EXPLAINED TO THE PATIENT THAT IS DUE TO MEDICARE NOT PAYING FOR ANY MEDICATIONS THAT SHE TAKES AT HOME WHILE IN AN OBSERVATION STATUS. THIS NURSE THEN INFORMED PATIENT THAT DR EDWARDS HAS NOT ORDERED ANY HOME MEDICATIONS AND WHEN HE DOES WE WILL ASK FOR THE BOTTLES TO BE VERIFIED BY OUR PHARMACY. PT VERBALIZED UNDERSTANDING. THIS NURSE THEN PROCEEDED TO DOCTOR'S AREA ON FLOOR AND DISCUSSED STARTING HOME MEDS WITH DR EDWARDS AND WAS INFORMED THAT PATIENT WILL BE TRANSFERRED TO [facility] ONCE HE RECEIVES A RETURN CALL FROM HER MACHINE HOOP MAKER. I INFORMED THE PATIENT OF THE CONVERSATION WITH DR EDWARDS. PT VERBALIZED UNDERSTANDING.
--- NOTE | 2017-08-06 12:37 | PC.NURSE ---
1239 - RECEIVED RETURN CALL FROM DR MENDOZA. ORDER RECEIVED TO NOT GIVE PATIENT ANY PO MEDICATION ORDERED.
--- NOTE | 2017-08-06 13:34 | HMH.PHAVTE ---
[facility] Pharmacy VTE Monitoring - Patient Demographics Admission date: 08/06/17 Report Date: 08/06/17 Time: 13:34 Allergies/Adverse Reactions: Patient Allergies No Known Allergies Allergy (Verified 08/05/17 13:42) Height: 1.45 m Weight: 61.348 kg Patient Problems: Current Active Problems Hypoxia (Acute) Anemia (Acute) Hyponatremia (Acute) Chest pain (Acute) Weakness (Acute) Chronic ischemic heart disease (Chronic) Chronic renal insufficiency, stage IV (severe) (Chronic) Acute on chronic combined systolic (congestive) and diastolic (congestive) heart failure (Acute) Type 2 diabetes mellitus (Chronic) Elevated troponin I level (Acute) Non-ST elevated myocardial infarction (Acute) - VTE Risk Labs: VTE Related Lab Results Hgb 9.4 g/dL (12.2-16.2) L 08/06/17 08:20 Hct 29.1 % (37.0-47.0) L 08/06/17 08:20 Plt Count 420 K/mm3 (142-424) 08/06/17 08:20 BUN 54 mg/dL (7-18) H 08/06/17 08:20 Creatinine 2.27 mg/dL (0.55-1.02) H 08/06/17 08:20 Estimated Creat Clear 20 mL/min (0-300) 08/06/17 08:20 Was VTE Risk Assessment Performed: Yes VTE Score: 3 VTE Risk Level: Low Risk - Prophylaxis Types of VTE Prophylaxis: TEDS Knee High Location of Applied Device: Bilateral Lower Extremeties - VTE Diagnosis Confirmed Comment: VICTOR MANUEL ROMAN
--- NOTE | 2017-08-06 14:19 | PC.NURSE ---
1411 - BED AVAILABLE AT [address] REPORT CALLED TO GALE @ [phone].
--- NOTE | 2017-08-06 15:04 | PC.NURSE ---
1450 - REVIEWED TRANSFER AND DISCHARGE WITH PT. PATIENT SIGNED ALL PAPERWORK. [facility] CALLED AND REQUESTED TRANSPORTATION WITH ACLS PERSONNEL.
--- NOTE | 2017-08-06 16:37 | PC.NURSE ---
1635 - PT TRANSPORTED OFF FLOOR VIA STRETCHER WITH EMS STAFF FOR TRANSFER TO [facility] ROOM 41[facility]. PT IN [facility].
--- NOTE | 2017-08-06 18:01 | PC.NURSE ---
LATE ENTRY FOR 08/06/17 @ 4756 - THIS NURSE IDENTIFIED BLOOD ON WASHCLOTH AND QUESTIONED PATIENT. PT REPORTS THAT HER NOSE HAS BEEN BLEEDING THROUGHOUT THE NIGHT. THIS NURSE ASKED PT IF THIS WAS NEW AND SHE STATED NO. I AM ON BLOOD THINNERS. EDUCATED PT THAT BLEEDING FROM HER NOSE IS NOT NORMAL FOR PEOPLE ON BLOOD THINNERS AND WOULD NEED TO BE ADDRESSED WITH DR EDWARDS UPON ROUNDS. PT WAS NOT ACTIVELY BLEEDING AT TIME OF ENCOUNTER. INFORMED OSWALD DAVILA OF ABOVE DURING HER ROUNDS WITH PATIENT.
--- NOTE | 2017-08-08 15:11 | HMH.DCSUM ---
General - General Admission date: 08/05/17 Discharge date: 08/06/17 HPI HPI: Ms Ba is a 77 female with a hx of heart disease, NE s/p CABG, afib, HLP, and DM who presented to the office of [facility] today with the complaint of weakness and SOA for 1 week. She had also been having nose bleeds. She is usually on oxygen at 3L/min and her sats are normally in the 90's. Today in the office, her oxygen was 85% on 3L. Rales were heard in her lung bases and it was felt she may have a pneumonia. Of note, she was admitted at [place] in May d/t pneumonia. She was directly admitted from the office for further evaluation and treatment. Hospital Course Hospital Course: Her CXR showed cardiomegaly and bilateral pleural effusions likely due to chronic somewhat compensated congestive heart failure. Her Troponin I was elevated, therefore cardiology was consulted. Cardiology felt with an elevated troponin in the setting of known coronary artery disease and ischemic cardiomyopathy with chest x-ray evidence of congestive heart failure, the patient should have a cardiac catheterization. The patient preferred to be transferred to [place] to her truck rental service attendant if a heart cath was required. She was given a single dose of IV Lasix. Her SOA improved slightly but she began having severe back pain. Dr. Brown discussed the case with her truck rental service attendant, Dr. Burk, and with [facility] hospitalist cotton weigher operator and planned to transfer the patient to [facility] in [place] for further evaluation and treatment of her non ST elevation NE. She was started on NTG, Eliquis was held, and she was transferred. Objective Vital signs: Temp Pulse Resp BP Pulse Ox 97.0 F L 85 18 130/58 92 L 08/06/17 16:00 08/06/17 16:00 08/06/17 16:00 08/06/17 16:00 08/06/17 16:00 Narrative: - Constitutional no acute distress - *Routine HEENT Exam Head: Present: normocephalic, atraumatic Eye: Present: EOMI, PERRL ENT: Present: mucous membranes dry - *Routine Neck Exam Present: supple, full ROM - *Routine Respiratory Exam Present: rales (bilateral bases, worse on the left) - *Routine Cardiovascular Exam Present: RRR - *Routine Abdominal Exam Present: soft, normoactive bowel sounds. Absent: tenderness - *Routine Extremities Exam Present: edema - *Routine Skin Exam Present: pallor - *Routine Neurological Exam Present: alert, oriented X3 Results Labs on day of discharge: Preliminary micro results at discharge 08/05/17 12:45 Blood Culture - Preliminary Blood NO GROWTH AFTER 72 HOURS 08/05/17 12:45 Blood Culture - Preliminary Blood NO GROWTH AFTER 72 HOURS DS: Diagnosis - Discharge Diagnosis (1) Non-ST elevated myocardial infarction Status: Acute (2) Elevated troponin I level Status: Acute (3) Chronic ischemic heart disease Status: Chronic (4) Acute on chronic combined systolic (congestive) and diastolic (congestive) heart failure Status: Acute (5) Hypoxia Status: Acute (6) Anemia Status: Acute (7) Hyponatremia Status: Acute (8) Chest pain Status: Acute (9) Weakness Status: Acute (10) Chronic renal insufficiency, stage IV (severe) Status: Chronic (11) Type 2 diabetes mellitus Status: Chronic Discharge Plan - Patient Discharge Instructions ACTIVITY: Continue current activity DIET: continue same diet Patient Instructions: DI for Heart Attack Forms: Transfer Record - Follow up Plan Follow up with: Nikhil Brown MD [Primary Care Provider] - Disposition: Xfer Short-Term Hosp Home Medications: Home Medications Medication Instructions Recorded Confirmed Type Bumetanide [Bumex 1mg tablet] 1 mg PO BID 08/05/17 08/05/17 History Clopidogrel Bisulfate [Plavix 75mg 75 mg PO DAILY 08/05/17 08/05/17 History Tab] Colesevelam HCl [Welchol] 625 mg PO BID 08/05/17 08/06/17 History Jayson Sharpe
--- NOTE | 2017-08-08 15:18 | P.DS_ITS ---
General - General Admission date: 08/05/17 Discharge date: 08/06/17 HPI HPI: Ms Ba is a 77 female with a hx of heart disease, PA s/p CABG, afib, HLP , and DM who presented to the office of [facility] today with the complaint of weakness and SOA for 1 week. She had also been having nose bleeds. She is usually on oxygen at 3L/min and her sats are normally in the 90's. Today in the office, her oxygen was 85% on 3L. Rales were heard in her lung bases and it was felt she may have a pneumonia. Of note, she was admitted at [place] in May d/t pneumonia. She was directly admitted from the office for further evaluation and treatment. Hospital Course Hospital Course: Her CXR showed cardiomegaly and bilateral pleural effusions likely due to chronic somewhat compensated congestive heart failure. Her Troponin I was elevated, therefore cardiology was consulted. Cardiology felt with an elevated troponin in the setting of known coronary artery disease and ischemic cardiomyopathy with chest x-ray evidence of congestive heart failure, the patient should have a cardiac catheterization. The patient preferred to be transferred to [place] to her front end software developer if a heart cath was required. She was given a single dose of IV Lasix. Her SOA improved slightly but she began having severe back pain. Dr. Brown discussed the case with her front end software developer , Dr. Burk, and with [facility] hospitalist instrument and control service person and planned to transfer the patient to [facility] in [place] for further evaluation and treatment of her non ST elevation PA. She was started on NTG, Eliquis was held , and she was transferred. Objective Vital signs: Temp Pulse Resp BP Pulse Ox 97.0 F L 85 18 130/58 92 L 08/06/17 16:00 08/06/17 16:00 08/06/17 16:00 08/06/17 16:00 08/06/17 16:00 Narrative: - Constitutional no acute distress - *Routine HEENT Exam Head: Present: normocephalic, atraumatic Eye: Present: EOMI, PERRL ENT: Present: mucous membranes dry - *Routine Neck Exam Present: supple, full ROM - *Routine Respiratory Exam Present: rales (bilateral bases, worse on the left) - *Routine Cardiovascular Exam Present: RRR - *Routine Abdominal Exam Present: soft, normoactive bowel sounds. Absent: tenderness - *Routine Extremities Exam Present: edema - *Routine Skin Exam Present: pallor - *Routine Neurological Exam Present: alert, oriented X3 Results Labs on day of discharge: Preliminary micro results at discharge 08/05/17 12:45 Blood Culture - Preliminary Blood NO GROWTH AFTER 72 HOURS 08/05/17 12:45 Blood Culture - Preliminary Blood NO GROWTH AFTER 72 HOURS DS: Diagnosis - Discharge Diagnosis (1) Non-ST elevated myocardial infarction Status: Acute (2) Elevated troponin I level Status: Acute (3) Chronic ischemic heart disease Status: Chronic (4) Acute on chronic combined systolic (congestive) and diastolic (congestive) heart failure Status: Acute (5) Hypoxia Status: Acute (6) Anemia Status: Acute (7) Hyponatremia Status: Acute (8) Chest pain Status: Acute (9) Weakness Status: Acute (10) Chronic renal insufficiency, stage IV (severe) Status: Chronic (11) Type 2 diabetes mellitus Status: Chronic Discharge Plan - Patient Discharge Instructions ACT
== END 2017-08-06 16:40 | disposition short-term general hospital (02) ==
PROVIDERS: Admitting Provider Family Medicine; Family Provider Family Medicine; PCP Family Medicine; Visit Provider Family Medicine
DX: I21.4 Non-ST elevation (NSTEMI) myocardial infarction (principal); I50.43 Acute on chronic combined systolic (congestive) and diastolic (congestive) heart failure; I48.2 Chronic atrial fibrillation; E78.5 Hyperlipidemia, unspecified; Z95.1 Presence of aortocoronary bypass graft; I11.0 Hypertensive heart disease with heart failure; Z99.81 Dependence on supplemental oxygen; I13.0 Hypertensive heart and chronic kidney disease with heart failure and stage 1 through stage 4 chronic kidney disease, or unspecified chronic kidney disease; E11.22 Type 2 diabetes mellitus with diabetic chronic kidney disease; N18.4 Chronic kidney disease, stage 4 (severe)
CPT/HCPCS: 36415; 71046; 80048; 82550; 82553; 82803; 82962; 84484; 85025; 86738; 87040; 93005; 93306; 94761; G0378; J0456; J2405